=== PATIENT | male | born 1985 | race Two or more races ===

== ENCOUNTER 2021-09-02 22:29 | Emergency (ER) | payer MEDICAID, OTHER ==
[~2021-09-02] VITALS: Ht 175.3 cm; Wt 65.8 kg
[2021-09-02 22:29] VITALS: BP 148/97
== END 2021-09-02 23:28 | disposition left against medical advice (07) ==
LOC: ER 22:29
DX: R53.1 Weakness (principal); R42 Dizziness and giddiness; R11.2 Nausea with vomiting, unspecified; Z53.21 Procedure and treatment not carried out due to patient leaving prior to being seen by health care provider
CPT/HCPCS: 82962; 93005